=== PATIENT | male | born 1985 | race Two or more races ===

== ENCOUNTER 2019-01-31 23:12 | Emergency (ER) | payer SELFPAY ==
[~2019-01-31] VITALS: Ht 167.6 cm; Wt 59.0 kg
== END 2019-02-01 01:53 | disposition left against medical advice (07) ==
LOC: ER 23:12
DX: Z53.21 Procedure and treatment not carried out due to patient leaving prior to being seen by health care provider (principal); H57.89 Other specified disorders of eye and adnexa

== ENCOUNTER 2021-06-27 23:52 | Emergency (ER) | payer BC ==
[~2021-06-27] VITALS: Ht 165.1 cm; Wt 63.5 kg
== END 2021-06-28 01:55 | disposition home or self-care (01) ==
LOC: ER 23:52
DX: S06.9X9A Unspecified intracranial injury with loss of consciousness of unspecified duration, initial encounter (principal); S01.81XA Laceration without foreign body of other part of head, initial encounter; F10.129 Alcohol abuse with intoxication, unspecified; W06.XXXA Fall from bed, initial encounter
CPT/HCPCS: 70450; 72125; 96372; 99285-25; J1630; J2060